=== PATIENT | male | born 1940 ===

== ENCOUNTER 2018-01-26 09:49 | Outpatient (CLI) | payer OTHER ==
[~2018-01-26] VITALS: Ht 167.6 cm; Wt 72.6 kg
== END 2018-01-26 10:10 | disposition home or self-care (01) ==
LOC: OFIC 805 09:49
DX: H90.3 Sensorineural hearing loss, bilateral (principal); H35.52 Pigmentary retinal dystrophy; H61.23 Impacted cerumen, bilateral

== ENCOUNTER 2018-05-10 10:42 | Outpatient (CLI) | payer OTHER ==
[~2018-05-10] VITALS: Ht 152.4 cm; Wt 70.3 kg
== END 2018-05-10 11:00 | disposition home or self-care (01) ==
LOC: OFIC 805 10:42
DX: H61.23 Impacted cerumen, bilateral (principal); H90.3 Sensorineural hearing loss, bilateral; H60.593 Other noninfective acute otitis externa, bilateral

== ENCOUNTER 2018-05-27 09:22 | Outpatient (CLI) | payer OTHER ==
[~2018-05-27] VITALS: Ht 152.4 cm; Wt 70.3 kg
== END 2018-05-27 09:40 | disposition home or self-care (01) ==
LOC: OFIC 805 09:22
DX: H60.593 Other noninfective acute otitis externa, bilateral (principal); H90.3 Sensorineural hearing loss, bilateral; H35.52 Pigmentary retinal dystrophy; H61.23 Impacted cerumen, bilateral

== ENCOUNTER 2018-09-02 10:45 | Outpatient (CLI) | payer OTHER ==
[~2018-09-02] VITALS: Ht 152.4 cm; Wt 72.6 kg
== END 2018-09-02 11:55 | disposition home or self-care (01) ==
LOC: OFIC 805 10:45
DX: H61.23 Impacted cerumen, bilateral (principal); H91.8X3 Other specified hearing loss, bilateral

== ENCOUNTER 2018-11-25 13:50 | Outpatient (CLI) | payer OTHER | END 2018-11-25 14:10 | disposition home or self-care (01) | LOC: OFIC 805 13:50 | DX: H60.8X2 Other otitis externa, left ear (principal); H91.90 Unspecified hearing loss, unspecified ear ==

== ENCOUNTER 2018-12-30 12:02 | Outpatient (CLI) | payer OTHER ==
[~2018-12-30] VITALS: Ht 152.4 cm; Wt 72.6 kg
== END 2018-12-30 12:20 | disposition home or self-care (01) ==
LOC: OFIC 805 12:02
DX: H60.8X2 Other otitis externa, left ear (principal); H61.23 Impacted cerumen, bilateral; H90.3 Sensorineural hearing loss, bilateral

== ENCOUNTER 2019-04-15 09:35 | Outpatient (CLI) | payer OTHER ==
[~2019-04-15] VITALS: Ht 152.4 cm; Wt 72.6 kg
== END 2019-04-15 12:39 | disposition home or self-care (01) ==
LOC: OFIC 805 09:35
DX: H35.52 Pigmentary retinal dystrophy (principal); H60.8X3 Other otitis externa, bilateral; H61.23 Impacted cerumen, bilateral; H90.3 Sensorineural hearing loss, bilateral

== ENCOUNTER 2019-08-18 11:45 | Outpatient (CLI) | payer OTHER ==
[~2019-08-18] VITALS: Ht 152.4 cm; Wt 68.0 kg
== END 2019-08-18 13:33 | disposition home or self-care (01) ==
LOC: OFIC 805 11:45
DX: J02.8 Acute pharyngitis due to other specified organisms (principal); H60.8X2 Other otitis externa, left ear; H61.23 Impacted cerumen, bilateral; H90.3 Sensorineural hearing loss, bilateral
CPT/HCPCS: 69210; 99213; G0463

== ENCOUNTER 2019-09-08 12:29 | Outpatient (CLI) | payer OTHER ==
[~2019-09-08] VITALS: Ht 152.4 cm; Wt 68.0 kg
== END 2019-09-08 13:44 | disposition home or self-care (01) ==
LOC: OFIC 805 12:29
DX: H91.8X3 Other specified hearing loss, bilateral (principal); H60.8X2 Other otitis externa, left ear; J02.9 Acute pharyngitis, unspecified

== ENCOUNTER 2019-11-07 11:44 | Outpatient (CLI) | payer OTHER ==
[2019-11-07] MEDS ORDERED: CIPRODEX OTIC7.5 ML OT (13:27)
== END 2019-11-07 15:00 | disposition home or self-care (01) ==
LOC: OFIC 805 11:44
DX: H90.3 Sensorineural hearing loss, bilateral (principal); H60.8X3 Other otitis externa, bilateral

== ENCOUNTER 2022-06-05 11:26 | Emergency (ER) | payer OTHER ==
[~2022-06-05] VITALS: Ht 170.2 cm; Wt 63.0 kg
[~2022-06-05 11:26] MED LIST: CIPRODEX OTIC7.5 ML OT
[2022-06-05] MEDS ORDERED: BUDEO.25 IH (11:46)
[2022-06-05] MEDS ORDERED: LEVOTHYROXINE25 MCG PO (11:47)
== END 2022-06-05 14:08 | disposition home or self-care (01) ==
LOC: ER 11:26
DX: R13.10 Dysphagia, unspecified (principal)